=== PATIENT | male | born 1995 | race Caucasian/White ===

== ENCOUNTER 2020-09-08 14:05 | Inpatient (IN) | payer MEDICAID, OTHER ==
[~2020-09-08] VITALS: Ht 175.3 cm; Wt 90.7 kg
[2020-09-08] MEDS ORDERED: ONDANSETRON HCL 4MG/2ML INJ IV STA (14:30)
[2020-09-08] MEDS ORDERED: SODIUM CHLORIDE 0.9% 1,000 ML IV ONE (14:30)
[2020-09-08 15:07] LABS: BASOPHILS % 0.3 % (0.0-2.0); EOSINOPHILS % 0.1 % (0.0-5.0); HEMATOCRIT. 46.8 % (42.0-52.0); HEMOGLOBIN. 15.7 g/dL (14.0-18.0); LYMPHOCYTES % 8.8 % (20.0-50.0); MEAN CORPUSCULAR HEMOGLOBIN 29.3 pg (28.0-32.0); MEAN CORPUSCULAR VOLUME 87.2 fL (80.0-94.0); MEAN PLATELET VOLUME 7.9 fl (7.4-10.4); MONOCYTES % 7.7 % (2.0-8.0); NEUTROPHILS % 83.1 % (40.0-76.0); PLATELET 243 x1000/uL (130-400); RED BLOOD CELL COUNT 5.37 mill/uL (4.7-6.1); RED CELL DISTRIBUTION WIDTH 13.3 % (11.6-14.6)
[2020-09-08 15:08] LABS: CLARITY URINE CLEAR (CLEAR); COLOR URINE ORANGE (YELLOW); KETONES URINE 2+ (NEGATIVE); LEUKOCYTE ESTERASE URINE NEGATIVE (NEGATIVE); NITRITE URINE NEGATIVE (NEGATIVE); OCCULT BLOOD URINE TRACE (NEGATIVE); PROTEIN URINE TRACE (NEGATIVE); SPECIFIC GRAVITY URINE 1.036 (1.005-1.030)
[2020-09-08 15:18] LABS: INR 1.1; PROTHROMBIN TIME 11.9 sec (9.6-11.0)
[2020-09-08 15:20] LABS: CHLORIDE 103 mEq/L (98-107)
[2020-09-08 15:25] LABS: ETHANOL BLOOD < 10 mg/dL
[2020-09-08] MEDS ORDERED: SODIUM CHLORIDE 0.9% 1000ML BAG (SEPSIS BOLUS) IV ONE (15:30)
[2020-09-08] MEDS ORDERED: POTASSIUM CHLORIDE 20MEQ TABLET SR PO ONE (15:30)
[2020-09-08] MEDS ORDERED: PIPERACILLIN/TAZ 3.375G PREMIX 50 ML IV ONE (15:30)
[2020-09-08] MEDS ORDERED: MORPHINE SULFATE 4 MG/ML CPJ (NOT FOR IM USE) IV ONE ×2 (15:30→19:00)
[2020-09-08 15:48] LABS: *AMPHETAMINES SCREEN URINE NEGATIVE (NEGATIVE); *BARBITURATES SCREEN URINE NEGATIVE (NEGATIVE); *BENZODIAZEPINES SCREEN URINE NEGATIVE (NEGATIVE); *COCAINE SCREEN URINE NEGATIVE (NEGATIVE); CANNABINOID URINE SCREEN PRESUMTIVE POSITIVE (NEGATIVE); METHADONE URINE SCREEN NEGATIVE (NEGATIVE); OPIATES URINE SCREEN NEGATIVE (NEGATIVE); PHENCYCLIDINE URINE SCREEN NEGATIVE (NEGATIVE)
[2020-09-08] MEDS ORDERED: ONDANSETRON HCL 4MG/2ML INJ IV ONE (19:00)
[2020-09-08] MEDS ORDERED: GUAIFENESIN 200MG/10ML SUGAR FREE UDC PO PRN (21:15)
[2020-09-08] MEDS ORDERED: HYDROCODONE/APAP 7.5/325MG 1 TAB TABLET PO PRN (21:15)
[2020-09-08] MEDS ORDERED: LORAZEPAM 0.5MG TABLET PO PRN (21:15)
[2020-09-08] MEDS ORDERED: CLONIDINE 0.1MG TABLET PO PRN (21:15)
[2020-09-08] MEDS ORDERED: MAGNESIUM/ALUMINUM HYDROXIDE/SIMETHICONE 30ML UDC PO PRN (21:15)
[2020-09-08] MEDS ORDERED: ACETAMINOPHEN 650MG SUPP PR PRN (21:15)
[2020-09-08] MEDS ORDERED: NA PHOS,M-B/NA PHOS,DI-BA ENEMA 118ML PR PRN (21:15)
[2020-09-08] MEDS ORDERED: ENOXAPARIN 40MG/0.4ML SYR SUBCUT SCH (21:30)
[2020-09-08 21:42] VITALS: BP 127/83
[2020-09-08] MEDS ORDERED: CEFTRIAXONE 1 G PREMIX 50 ML IV SCH (22:00)
[2020-09-08] MEDS ORDERED: METRONIDAZOLE 500 MG PREMIX 100 ML IV SCH (22:00)
[2020-09-09] VITALS: BP 126/76
[2020-09-09] MEDS: MORPHINE SULFATE 2 MG/ML CPJ (NOT FOR IM USE) IV PRN ×3 (02:09→20:22)
[2020-09-09 04:00] VITALS: BP 122/70
[2020-09-09] MEDS: CEFTRIAXONE 1,000 MG in DEXTROSE 5% WATER 50 ML IV SCH (05:23)
[2020-09-09] MEDS: DEXT 5%/0.45% NACL 1000ML 1,000 ML IV SCH ×3 (05:23→23:19)
[2020-09-09 07:35] LABS: BASOPHILS % 0.3 % (0.0-2.0); EOSINOPHILS % 0.2 % (0.0-5.0); HEMOGLOBIN. 12.9 g/dL (14.0-18.0); LYMPHOCYTES % 11.9 % (20.0-50.0); MEAN CORPUSCULAR HEMOGLOBIN 29.8 pg (28.0-32.0); MEAN CORPUSCULAR VOLUME 87.9 fL (80.0-94.0); MONOCYTES % 9.9 % (2.0-8.0); NEUTROPHILS % 77.7 % (40.0-76.0); PLATELET 210 x1000/uL (130-400); RED BLOOD CELL COUNT 4.32 mill/uL (4.7-6.1); RED CELL DISTRIBUTION WIDTH 13.3 % (11.6-14.6)
[2020-09-09 08:00] VITALS: BP 128/71
[2020-09-09 08:07] LABS: CHLORIDE 107 mEq/L (98-107)
[2020-09-09 08:14] LABS: LDL CHOLESTEROL 72 mg/dL (5-100)
[2020-09-09 08:15] LABS: HDL CHOLESTEROL 40 mg/dL (40-59)
[2020-09-09] MEDS: METRONIDAZOLE 500 MG PREMIX 100 ML IV SCH ×3 (08:32→21:07)
[2020-09-09] MEDS: ENOXAPARIN 40MG/0.4ML SYR SUBCUT SCH (08:33)
[2020-09-09 12:00] VITALS: BP 116/72
[2020-09-09 16:00] VITALS: BP 119/74
[2020-09-09 20:00] VITALS: BP 131/90
[2020-09-10] VITALS: BP 116/74
[2020-09-10] MEDS: MORPHINE SULFATE 2 MG/ML CPJ (NOT FOR IM USE) IV PRN (02:28)
[2020-09-10] MEDS: CEFTRIAXONE 1,000 MG in DEXTROSE 5% WATER 50 ML IV SCH (02:28)
[2020-09-10 04:00] VITALS: BP 124/66
[2020-09-10] MEDS: METRONIDAZOLE 500 MG PREMIX 100 ML IV SCH ×2 (05:41→13:07)
[2020-09-10 08:00] VITALS: BP 118/76
[2020-09-10] MEDS: ENOXAPARIN 40MG/0.4ML SYR SUBCUT SCH (08:46)
[2020-09-10] MEDS ORDERED: METR500T MT (11:43)
[2020-09-10 12:00] VITALS: BP 124/85
[2020-09-10] MEDS: DEXT 5%/0.45% NACL 1000ML 1,000 ML IV SCH (13:05)
[2020-09-10 15:00] VITALS: BP 121/78
[2020-09-10 16:14] VITALS: BP 121/78
== END 2020-09-10 16:00 | disposition home or self-care (01) | DRG 244 ==
LOC: ER 14:05 → 6EST 17:23 → EDBEDREQTM 17:27 → EDBEDREQ 17:27 → ENRESERV 19:50 → ER 20:16
PROVIDERS: ADMIT Family Medicine; ATTEND Family Medicine
DX: K57.32 Diverticulitis of large intestine without perforation or abscess without bleeding (principal); E87.6 Hypokalemia; E86.0 Dehydration; K76.0 Fatty (change of) liver, not elsewhere classified
CPT/HCPCS: 36415; 71045; 74176; 80053; 80061; 80305; 80320; 81003; 83605; 84484; 85025; 93005; 99285; J0696; J1650; J2270; J2405; J2543; J3490; J7030; J7060; G0480

== ENCOUNTER 2020-10-10 16:58 | Emergency (ER) | payer MEDICAID ==
[~2020-10-10] VITALS: Ht 172.7 cm; Wt 70.0 kg
[~2020-10-10 16:58] MED LIST: METR500T MT
[2020-10-10] MEDS ORDERED: PANTOPRAZOLE SODIUM 40 MG/VIAL IV ONE (18:30)
[2020-10-10] MEDS ORDERED: ONDANSETRON HCL 4MG/2ML INJ IV ONE (18:30)
[2020-10-10] MEDS ORDERED: SODIUM CHLORIDE 0.9% 1,000 ML IV ONE (18:30)
[2020-10-10 18:34] LABS: HEMATOCRIT. 44.1 % (42.0-52.0); HEMOGLOBIN. 14.7 g/dL (14.0-18.0); MEAN CORPUSCULAR HEMOGLOBIN 28.9 pg (28.0-32.0); MEAN CORPUSCULAR VOLUME 86.5 fL (80.0-94.0); MEAN PLATELET VOLUME 7.6 fl (7.4-10.4); PLATELET 273 x1000/uL (130-400); RED BLOOD CELL COUNT 5.09 mill/uL (4.7-6.1); RED CELL DISTRIBUTION WIDTH 13.9 % (11.6-14.6)
[2020-10-10 18:39] LABS: CHLORIDE 108 mEq/L (98-107)
[2020-10-10 18:41] LABS: INR 1.1; PROTHROMBIN TIME 11.7 sec (9.6-11.0)
[2020-10-10 19:02] LABS: PLATELET ESTIMATE NORMAL
[2020-10-10] MEDS ORDERED: IOHEXOL-300 100 ML BOTTLE ONE (21:44)
[2020-10-10] MEDS ORDERED: DOCUSATE SODIUM 100MG CAPSULE PO ONE (22:15)
[2020-10-10] MEDS ORDERED: LEVOFLOXACIN 250MG TABLET PO ONE (22:15)
[2020-10-10] MEDS ORDERED: HYDROCODONE/ACETAMINOPHEN 5/325MG TABLET PO ONE (22:15)
[2020-10-10] MEDS ORDERED: METRONIDAZOLE 500 MG PREMIX 100 ML IV ONE (22:15)
[2020-10-11] MEDS ORDERED: METR375C2 MT (00:04)
[2020-10-11] MEDS ORDERED: HYDR-4346 MT (00:04)
[2020-10-11] MEDS ORDERED: LEVO500T89 MT (00:04)
[2020-10-11] MEDS ORDERED: DOCU-138 MT (00:04)
[2020-10-11] MEDS ORDERED: ONDA4TAB5 MT (00:04)
[2020-10-11 00:24] VITALS: BP 123/64
== END 2020-10-11 00:37 | disposition home or self-care (01) ==
LOC: ER 16:58
DX: K57.92 Diverticulitis of intestine, part unspecified, without perforation or abscess without bleeding (principal)
CPT/HCPCS: 36415; 74177; 80053; 83690; 85025; 85610; 96365; 96375; 99285; C9113; J2405; J3490; J7030; Q9967; Z7610

== ENCOUNTER 2020-12-11 03:39 | Emergency (ER) | payer SELFPAY ==
[~2020-12-11] VITALS: Ht 175.3 cm; Wt 87.0 kg
[~2020-12-11 03:39] MED LIST changes: +DOCU-138 MT; +HYDR-4346 MT; +LEVO500T89 MT; +METR375C2 MT; +ONDA4TAB5 MT
[2020-12-11 04:27] VITALS: BP 117/72
== END 2020-12-11 04:27 | disposition home or self-care (01) ==
LOC: ER 03:39
DX: T16.1XXA Foreign body in right ear, initial encounter (principal); X58.XXXA Exposure to other specified factors, initial encounter; Y93.89 Activity, other specified; Y92.89 Other specified places as the place of occurrence of the external cause; Y99.8 Other external cause status
CPT/HCPCS: 69200; 99284

== ENCOUNTER 2021-08-05 09:31 | Inpatient (IN) | payer SELFPAY ==
[~2021-08-05] VITALS: Ht 175.3 cm; Wt 86.2 kg
[2021-08-05] MEDS ORDERED: SODIUM CHLORIDE 0.9% 1,000 ML IV ONE (10:45)
[2021-08-05] MEDS ORDERED: MORPHINE SULFATE 4 MG/ML CPJ (NOT FOR IM USE) IV STA (10:45)
[2021-08-05] MEDS ORDERED: ONDANSETRON HCL 4MG/2ML INJ IV STA (10:45)
[2021-08-05] MEDS ORDERED: AMPICILLIN SOD/SULBACTAM NA 3 G in SODIUM CHLORIDE 0.9% 100 ML IV STA (11:15)
[2021-08-05 11:26] LABS: HEMATOCRIT. 43.7 % (42.0-52.0); HEMOGLOBIN. 14.6 g/dL (14.0-18.0); MEAN CORPUSCULAR HEMOGLOBIN 29.3 pg (28.0-32.0); MEAN CORPUSCULAR VOLUME 87.3 fL (80.0-94.0); MEAN PLATELET VOLUME 7.4 fl (7.4-10.4); PLATELET 462 x1000/uL (130-400); RED BLOOD CELL COUNT 5.01 mill/uL (4.7-6.1)
[2021-08-05 11:32] LABS: CHLORIDE 102 mEq/L (98-107)
[2021-08-05 12:23] LABS: NUCLEATED RED BLOOD CELLS 1 /100 WBC; PLATELET ESTIMATE INCREASED
[2021-08-05] MEDS ORDERED: KETOROLAC 15MG/ML VIAL IV ONE (12:30)
[2021-08-05] MEDS ORDERED: POTASSIUM CHLORIDE 20MEQ TABLET SR PO ONE (12:45)
[2021-08-05] MEDS ORDERED: MORPHINE SULFATE 4 MG/ML CPJ (NOT FOR IM USE) IV ONE (13:30)
[2021-08-05] MEDS ORDERED: ACETAMINOPHEN 325MG TABLET PO PRN (15:30)
[2021-08-05] MEDS ORDERED: GUAIFENESIN 200MG/10ML SUGAR FREE UDC PO PRN (15:30)
[2021-08-05] MEDS ORDERED: MAGNESIUM/ALUMINUM HYDROXIDE/SIMETHICONE 30ML UDC PO PRN (15:30)
[2021-08-05] MEDS: DEXT 5%/0.45% NACL 1000ML 1,000 ML IV SCH (15:30)
[2021-08-05] MEDS ORDERED: CLONIDINE 0.1MG TABLET PO PRN (15:30)
[2021-08-05] MEDS ORDERED: DOCUSATE SODIUM 100MG CAPSULE PO PRN (15:30)
[2021-08-05] MEDS ORDERED: DIPHENHYDRAMINE 50MG/ML VIAL IV PRN (15:30)
[2021-08-05] MEDS ORDERED: IPRATROPIUM/ALBUTEROL 0.5-3(2.5)MG/3ML NEB HHN PRN (15:30)
[2021-08-05] MEDS ORDERED: HYDRALAZINE 20MG/ML VIAL IV PRN (15:30)
[2021-08-05] MEDS ORDERED: LORAZEPAM 2MG/ML CPJ IV PRN (15:30)
[2021-08-05] MEDS ORDERED: PIPERACILLIN/TAZ 3.375G PREMIX 50 ML IV SCH (16:00)
[2021-08-05] MEDS: ENOXAPARIN 40MG/0.4ML SYR SUBCUT SCH (16:00)
[2021-08-05] MEDS: MORPHINE SULFATE 2 MG/ML CPJ (NOT FOR IM USE) IV PRN ×2 (17:32→21:48)
[2021-08-05] MEDS: SODIUM CHLORIDE 0.9% INJ 3ML FLUSH IVF SCH (21:47)
[2021-08-05] MEDS ORDERED: KETOROLAC 15MG/ML VIAL IV PRN (22:00)
[2021-08-05] MEDS: PIPERACILLIN/TAZOBACTAM 3.375G in DEXT 5% WATER 50ML IV SCH (22:10)
[2021-08-06] MEDS: DEXT 5%/0.45% NACL 1000ML 1,000 ML IV SCH ×3 (02:12→20:42)
[2021-08-06 02:34] LABS: CLARITY URINE CLEAR (CLEAR); COLOR URINE YELLOW (YELLOW); KETONES URINE NEGATIVE (NEGATIVE); LEUKOCYTE ESTERASE URINE NEGATIVE (NEGATIVE); NITRITE URINE NEGATIVE (NEGATIVE); OCCULT BLOOD URINE NEGATIVE (NEGATIVE); PH URINE 6.5 (4.5-8.0); PROTEIN URINE NEGATIVE (NEGATIVE); SPECIFIC GRAVITY URINE 1.018 (1.005-1.030)
[2021-08-06 02:44] LABS: *AMPHETAMINES SCREEN URINE NEGATIVE (NEGATIVE); *BARBITURATES SCREEN URINE NEGATIVE (NEGATIVE); *BENZODIAZEPINES SCREEN URINE NEGATIVE (NEGATIVE); *COCAINE SCREEN URINE NEGATIVE (NEGATIVE); METHADONE URINE SCREEN NEGATIVE (NEGATIVE); OPIATES URINE SCREEN PRESUMTIVE POSITIVE (NEGATIVE)
[2021-08-06 02:45] LABS: CANNABINOID URINE SCREEN PRESUMTIVE POSITIVE (NEGATIVE); PHENCYCLIDINE URINE SCREEN NEGATIVE (NEGATIVE)
[2021-08-06 05:07] LABS: BASOPHILS % 0.2 % (0.0-2.0); EOSINOPHILS % 0.3 % (0.0-5.0); HEMATOCRIT. 34.7 % (42.0-52.0); HEMOGLOBIN. 11.9 g/dL (14.0-18.0); LYMPHOCYTES % 12.8 % (20.0-50.0); MEAN CORPUSCULAR VOLUME 87.2 fL (80.0-94.0); MEAN PLATELET VOLUME 7.4 fl (7.4-10.4); MONOCYTES % 8.7 % (2.0-8.0); PLATELET 306 x1000/uL (130-400); RED BLOOD CELL COUNT 3.98 mill/uL (4.7-6.1)
[2021-08-06] MEDS: ONDANSETRON HCL 4MG/2ML INJ IV PRN ×2 (05:08→11:41)
[2021-08-06 05:19] LABS: CHLORIDE 106 mEq/L (98-107)
[2021-08-06] MEDS: SODIUM CHLORIDE 0.9% INJ 3ML FLUSH IVF SCH ×3 (06:04→22:00)
[2021-08-06] MEDS: PIPERACILLIN/TAZOBACTAM 3.375G in DEXT 5% WATER 50ML IV SCH ×3 (06:20→23:00)
[2021-08-06] MEDS: MORPHINE SULFATE 2 MG/ML CPJ (NOT FOR IM USE) IV PRN ×4 (07:36→20:43)
[2021-08-06] MEDS ORDERED: POTASSIUM CHLORIDE 20MEQ TABLET SR PO NR (08:00)
[2021-08-06 08:50] VITALS: BP 135/73
[2021-08-06] MEDS: HYDROCODONE/ACETAMINOPHEN 5/325MG TABLET PO PRN ×3 (09:58→23:03)
[2021-08-06] MEDS ORDERED: NALOXONE HCL 0.4MG/ML VIAL IV PRN (13:15)
[2021-08-06 16:00] VITALS: BP 108/63
[2021-08-06] MEDS: ENOXAPARIN 40MG/0.4ML SYR SUBCUT SCH (16:57)
[2021-08-06] MEDS ORDERED: *PATIENT'S OWN MEDICATION STORAGE XX SCH (19:45)
[2021-08-06 20:00] VITALS: BP 109/61
[2021-08-07] VITALS: BP 110/61
[2021-08-07 04:00] VITALS: BP 120/73
[2021-08-07] MEDS: MORPHINE SULFATE 2 MG/ML CPJ (NOT FOR IM USE) IV PRN ×4 (05:14→23:07)
[2021-08-07] MEDS: PIPERACILLIN/TAZOBACTAM 3.375G in DEXT 5% WATER 50ML IV SCH ×3 (05:17→23:07)
[2021-08-07] MEDS: SODIUM CHLORIDE 0.9% INJ 3ML FLUSH IVF SCH ×3 (05:17→22:00)
[2021-08-07] MEDS: DEXT 5%/0.45% NACL 1000ML 1,000 ML IV SCH ×2 (07:32→17:30)
[2021-08-07 08:00] VITALS: BP 108/64
[2021-08-07 12:00] VITALS: BP 121/68
[2021-08-07] MEDS: HYDROCODONE/ACETAMINOPHEN 5/325MG TABLET PO PRN ×2 (13:03→19:45)
[2021-08-07 13:37] LABS: HEMATOCRIT 36.1 % (42.0-52.0); HEMOGLOBIN 12.4 g/dL (14.0-18.0); MEAN CORPUSCULAR HEMOGLOBIN 29.9 pg (28.0-32.0); MEAN CORPUSCULAR VOLUME 87.1 fL (80.0-94.0); PLATELET 337 x1000/uL (130-400); RED BLOOD CELL COUNT 4.14 mill/uL (4.7-6.1); RED CELL DISTRIBUTION WIDTH 12.7 % (11.6-14.6)
[2021-08-07 13:58] LABS: CHLORIDE 105 mEq/L (98-107)
[2021-08-07] MEDS: ENOXAPARIN 40MG/0.4ML SYR SUBCUT SCH (16:35)
[2021-08-07 20:00] VITALS: BP 119/70
[2021-08-08] VITALS: BP 117/45
[2021-08-08 04:00] VITALS: BP 126/55
[2021-08-08] MEDS: DEXT 5%/0.45% NACL 1000ML 1,000 ML IV SCH ×3 (04:09→23:30)
[2021-08-08] MEDS: PIPERACILLIN/TAZOBACTAM 3.375G in DEXT 5% WATER 50ML IV SCH ×3 (05:32→22:00)
[2021-08-08] MEDS: HYDROCODONE/ACETAMINOPHEN 5/325MG TABLET PO PRN (06:41)
[2021-08-08] MEDS: SODIUM CHLORIDE 0.9% INJ 3ML FLUSH IVF SCH ×3 (06:41→22:00)
[2021-08-08 08:00] VITALS: BP 122/84
[2021-08-08 08:01] LABS: CHLORIDE 105 mEq/L (98-107)
[2021-08-08 08:06] LABS: BASOPHILS % 0.2 % (0.0-2.0); EOSINOPHILS % 0.3 % (0.0-5.0); HEMOGLOBIN. 13.4 g/dL (14.0-18.0); LYMPHOCYTES % 10.1 % (20.0-50.0); MEAN CORPUSCULAR HEMOGLOBIN 30.2 pg (28.0-32.0); MEAN CORPUSCULAR VOLUME 85.5 fL (80.0-94.0); MEAN PLATELET VOLUME 7.3 fl (7.4-10.4); MONOCYTES % 7.5 % (2.0-8.0); NEUTROPHILS % 81.9 % (40.0-76.0); PLATELET 370 x1000/uL (130-400); RED BLOOD CELL COUNT 4.45 mill/uL (4.7-6.1); RED CELL DISTRIBUTION WIDTH 12.7 % (11.6-14.6)
[2021-08-08 12:00] VITALS: BP 119/71
[2021-08-08] MEDS: ENOXAPARIN 40MG/0.4ML SYR SUBCUT SCH (15:37)
[2021-08-08 16:00] VITALS: BP 124/78
[2021-08-08 20:00] VITALS: BP 115/69
[2021-08-08] MEDS ORDERED: HYDRALAZINE 10 MG in SODIUM CHLORIDE 0.9% 49.5 ML IV PRN (22:00)
[2021-08-09] VITALS: BP 114/63
[2021-08-09 04:00] VITALS: BP 109/64
[2021-08-09] MEDS: PIPERACILLIN/TAZOBACTAM 3.375G in DEXT 5% WATER 50ML IV SCH (05:50)
[2021-08-09] MEDS: SODIUM CHLORIDE 0.9% INJ 3ML FLUSH IVF SCH (05:51)
[2021-08-09 08:00] VITALS: BP 118/73
[2021-08-09 08:23] LABS: BASOPHILS % 0.3 % (0.0-2.0); EOSINOPHILS % 0.8 % (0.0-5.0); HEMATOCRIT. 39.5 % (42.0-52.0); HEMOGLOBIN. 13.5 g/dL (14.0-18.0); LYMPHOCYTES % 16.7 % (20.0-50.0); MEAN CORPUSCULAR HEMOGLOBIN 29.8 pg (28.0-32.0); MEAN CORPUSCULAR VOLUME 86.9 fL (80.0-94.0); MEAN PLATELET VOLUME 7.2 fl (7.4-10.4); MONOCYTES % 7.5 % (2.0-8.0); NEUTROPHILS % 74.7 % (40.0-76.0); PLATELET 372 x1000/uL (130-400); RED BLOOD CELL COUNT 4.55 mill/uL (4.7-6.1)
[2021-08-09 08:55] LABS: CHLORIDE 104 mEq/L (98-107)
== END 2021-08-09 12:08 | disposition home or self-care (01) | DRG 244 ==
LOC: ER 09:31 → MICUSO 15:21 → 6EST 08-06 08:44
PROVIDERS: ADMIT Internal Medicine; ATTEND Internal Medicine
DX: K57.32 Diverticulitis of large intestine without perforation or abscess without bleeding (principal); R65.10 Systemic inflammatory response syndrome (SIRS) of non-infectious origin without acute organ dysfunction; D64.9 Anemia, unspecified; E86.0 Dehydration; E87.6 Hypokalemia; Z20.822 Contact with and (suspected) exposure to COVID-19; F17.200 Nicotine dependence, unspecified, uncomplicated; Z87.11 Personal history of peptic ulcer disease; Z79.2 Long term (current) use of antibiotics; Z79.899 Other long term (current) drug therapy
CPT/HCPCS: 36415; 74176; 80048; 80053; 80305; 81003; 85025; 85027; 87426; 93005; 99285; J0295; J1650; J1885; J2270; J2405; J2543; J7030; J7050; J7060

== ENCOUNTER 2022-01-19 06:14 | Inpatient (IN) | payer MEDICAID, OTHER ==
[~2022-01-19] VITALS: Ht 172.7 cm; Wt 83.5 kg
[~2022-01-19 06:14] MED LIST changes: -LEVO500T89 MT; +LEVO500T90 MT; -METR375C2 MT
[2022-01-19] MEDS ORDERED: FAMOTIDINE 20MG/2ML VIAL IV STA (07:08)
[2022-01-19] MEDS ORDERED: ONDANSETRON HCL 4MG/2ML INJ IV STA (07:08)
[2022-01-19] MEDS ORDERED: MORPHINE SULFATE 4 MG/ML CPJ (NOT FOR IM USE) IV STA (07:08)
[2022-01-19] MEDS ORDERED: SODIUM CHLORIDE 0.9% 1,000 ML IV ONE (07:15)
[2022-01-19 09:05] LABS: HEMATOCRIT. 47.9 % (42.0-52.0); HEMOGLOBIN. 16.2 g/dL (14.0-18.0); MEAN CORPUSCULAR HEMOGLOBIN 30.1 pg (28.0-32.0); MEAN PLATELET VOLUME 7.8 fl (7.4-10.4); PLATELET 300 x1000/uL (130-400); RED BLOOD CELL COUNT 5.38 mill/uL (4.7-6.1); RED CELL DISTRIBUTION WIDTH 13.6 % (11.6-14.6)
[2022-01-19 09:14] LABS: CHLORIDE 102 mEq/L (98-107); PROTHROMBIN TIME 11.1 sec (9.6-11.0)
[2022-01-19] MEDS ORDERED: FAMOTIDINE 20MG/2ML VIAL IV SCH (09:30)
[2022-01-19 09:44] LABS: PLATELET ESTIMATE NORMAL
[2022-01-19] MEDS ORDERED: MORPHINE SULFATE 4 MG/ML CPJ (NOT FOR IM USE) IV ONE (10:00)
[2022-01-19] MEDS ORDERED: LEVOFLOXACIN 500MG PREMIX 100 ML IV ONE (10:00)
[2022-01-19] MEDS ORDERED: METRONIDAZOLE 500 MG PREMIX 100 ML IV ONE (10:00)
[2022-01-19] MEDS ORDERED: ONDANSETRON HCL 4MG/2ML INJ IV ONE (10:00)
[2022-01-19] MEDS ORDERED: ACETAMINOPHEN 325MG TABLET PO PRN (12:00)
[2022-01-19] MEDS ORDERED: ONDANSETRON HCL 4MG/2ML INJ IV PRN (12:00)
[2022-01-19] MEDS ORDERED: PIPERACILLIN/TAZ 3.375G PREMIX 50 ML IV NR (12:15)
[2022-01-19 16:00] VITALS: BP 101/68
[2022-01-19 16:04] VITALS: BP 100/58
[2022-01-19] MEDS: HYDROCODONE/ACETAMINOPHEN 5/325MG TABLET PO PRN (18:08)
[2022-01-19] MEDS ORDERED: NALOXONE HCL 0.4MG/ML VIAL IV PRN (19:45)
[2022-01-19 20:00] VITALS: BP 115/64
[2022-01-19 20:58] LABS: CLARITY URINE CLEAR (CLEAR); COLOR URINE YELLOW (YELLOW); KETONES URINE 2+ (NEGATIVE); LEUKOCYTE ESTERASE URINE NEGATIVE (NEGATIVE); NITRITE URINE NEGATIVE (NEGATIVE); OCCULT BLOOD URINE NEGATIVE (NEGATIVE); PH URINE 6.5 (4.5-8.0); PROTEIN URINE TRACE (NEGATIVE); SPECIFIC GRAVITY URINE 1.028 (1.005-1.030)
[2022-01-19] MEDS: PIPERACILLIN/TAZOBACTAM 3.375 G in DEXTROSE 5% WATER 50 ML IV SCH (21:42)
[2022-01-19] MEDS ORDERED: PIPERACILLIN/TAZOBACTAM 3.375 G in DEXTROSE 5% WATER 50 ML IV SCH (22:00)
[2022-01-20] VITALS: BP 98/54
[2022-01-20 04:00] VITALS: BP 101/56
[2022-01-20] MEDS: PIPERACILLIN/TAZOBACTAM 3.375 G in DEXTROSE 5% WATER 50 ML IV SCH ×3 (05:54→21:24)
[2022-01-20] MEDS: HYDROCODONE/ACETAMINOPHEN 5/325MG TABLET PO PRN (05:54)
[2022-01-20 07:23] LABS: BASOPHILS % 0.3 % (0.0-2.0); EOSINOPHILS % 0.5 % (0.0-5.0); HEMATOCRIT. 43.9 % (42.0-52.0); HEMOGLOBIN. 14.9 g/dL (14.0-18.0); LYMPHOCYTES % 13.1 % (20.0-50.0); MEAN CORPUSCULAR HEMOGLOBIN 30.2 pg (28.0-32.0); MEAN CORPUSCULAR VOLUME 89.2 fL (80.0-94.0); MEAN PLATELET VOLUME 7.7 fl (7.4-10.4); MONOCYTES % 7.5 % (2.0-8.0); NEUTROPHILS % 78.6 % (40.0-76.0); PLATELET 236 x1000/uL (130-400); RED BLOOD CELL COUNT 4.93 mill/uL (4.7-6.1); RED CELL DISTRIBUTION WIDTH 13.7 % (11.6-14.6)
[2022-01-20 07:47] LABS: CHLORIDE 107 mEq/L (98-107)
[2022-01-20 08:00] VITALS: BP 102/56
[2022-01-20] MEDS: FAMOTIDINE 20MG/2ML VIAL IV SCH (08:59)
[2022-01-20 12:00] VITALS: BP_SYST 102; BP_SYST 110; BP_DIAS 60; BP_DIAS 63
[2022-01-20 16:21] VITALS: BP 110/63
[2022-01-20 20:00] VITALS: BP 114/64
[2022-01-21] VITALS: BP 108/61
[2022-01-21 04:00] VITALS: BP 100/59
[2022-01-21] MEDS: PIPERACILLIN/TAZOBACTAM 3.375 G in DEXTROSE 5% WATER 50 ML IV SCH ×2 (05:46→15:04)
[2022-01-21 06:44] LABS: BASOPHILS % 0.4 % (0.0-2.0); EOSINOPHILS % 1.2 % (0.0-5.0); HEMATOCRIT. 44.5 % (42.0-52.0); HEMOGLOBIN. 15.1 g/dL (14.0-18.0); LYMPHOCYTES % 21.7 % (20.0-50.0); MEAN CORPUSCULAR HEMOGLOBIN 30.2 pg (28.0-32.0); MEAN CORPUSCULAR VOLUME 88.9 fL (80.0-94.0); MEAN PLATELET VOLUME 7.8 fl (7.4-10.4); MONOCYTES % 9.2 % (2.0-8.0); NEUTROPHILS % 67.5 % (40.0-76.0); PLATELET 262 x1000/uL (130-400); RED BLOOD CELL COUNT 5.01 mill/uL (4.7-6.1); RED CELL DISTRIBUTION WIDTH 13.6 % (11.6-14.6)
[2022-01-21 06:47] LABS: CHLORIDE 103 mEq/L (98-107)
[2022-01-21 08:00] VITALS: BP 107/57
[2022-01-21] MEDS: FAMOTIDINE 20MG/2ML VIAL IV SCH (09:33)
[2022-01-21] MEDS ORDERED: POTASSIUM CHLORIDE 20MEQ/PACKET PO NR (10:00)
[2022-01-21 12:00] VITALS: BP 117/70
[2022-01-21 16:00] VITALS: BP 102/64
== END 2022-01-21 20:55 | disposition left against medical advice (07) | DRG 244 ==
LOC: ER 07:59 → 4WST 11:04 → ENRESERV 14:02 → 6EST 18:46
PROVIDERS: ADMIT Internal Medicine; ATTEND Internal Medicine
DX: K57.32 Diverticulitis of large intestine without perforation or abscess without bleeding (principal); K76.0 Fatty (change of) liver, not elsewhere classified; D72.829 Elevated white blood cell count, unspecified; R73.9 Hyperglycemia, unspecified; F12.90 Cannabis use, unspecified, uncomplicated; Z53.29 Procedure and treatment not carried out because of patient's decision for other reasons
CPT/HCPCS: 36415; 74176; 76700; 80048; 80053; 80076; 81003; 82248; 85025; 99285; J1956; J2270; J2405; J2543; J3490; J7030; J7060

== ENCOUNTER 2022-07-09 17:48 | Inpatient (IN) | payer MEDICAID, OTHER ==
[~2022-07-09] VITALS: Ht 165.1 cm; Wt 150.0 kg
[~2022-07-09 17:48] MED LIST changes: +LEVO-65 MT; -LEVO500T90 MT
[2022-07-09] MEDS ORDERED: MORPHINE SULFATE 4 MG/ML CPJ (NOT FOR IM USE) IV STA (18:08)
[2022-07-09] MEDS ORDERED: ONDANSETRON HCL 4MG/2ML INJ IV STA (18:08)
[2022-07-09] MEDS ORDERED: CEFTRIAXONE 1 G PREMIX 50 ML IV ONE (18:15)
[2022-07-09] MEDS ORDERED: SODIUM CHLORIDE 0.9% 1000ML BAG (SEPSIS BOLUS) IV ONE (18:15)
[2022-07-09] MEDS ORDERED: METRONIDAZOLE 500 MG PREMIX 100 ML IV ONE (18:15)
[2022-07-09 20:10] LABS: BASOPHILS % 0.2 % (0.0-2.0); HEMATOCRIT. 46.1 % (42.0-52.0); HEMOGLOBIN. 15.7 g/dL (14.0-18.0); LYMPHOCYTES % 7.1 % (20.0-50.0); MEAN CORPUSCULAR HEMOGLOBIN 30.7 pg (28.0-32.0); MEAN CORPUSCULAR VOLUME 90.1 fL (80.0-94.0); MEAN PLATELET VOLUME 7.5 fl (7.4-10.4); MONOCYTES % 4.2 % (2.0-8.0); NEUTROPHILS % 88.5 % (40.0-76.0); PLATELET 291 x1000/uL (130-400); RED BLOOD CELL COUNT 5.11 mill/uL (4.7-6.1); RED CELL DISTRIBUTION WIDTH 13.5 % (11.6-14.6)
[2022-07-09 20:15] LABS: CHLORIDE 107 mEq/L (98-107)
[2022-07-09 20:16] LABS: PROTHROMBIN TIME 11.1 sec (9.6-11.0)
[2022-07-09] MEDS ORDERED: IOHEXOL-300 100 ML BOTTLE ONE (21:18)
[2022-07-09] MEDS ORDERED: ONDANSETRON HCL 4MG/2ML INJ IV NR (22:00)
[2022-07-09] MEDS ORDERED: METRONIDAZOLE 500 MG PREMIX 100 ML IV NR (22:00)
[2022-07-09] MEDS ORDERED: CEFTRIAXONE 1 G PREMIX 50 ML IV NR (22:00)
[2022-07-09] MEDS: MORPHINE SULFATE 4 MG/ML CPJ (NOT FOR IM USE) IV NR ×2 (22:43→23:13)
[2022-07-10] MEDS ORDERED: MORPHINE SULFATE 4 MG/ML CPJ (NOT FOR IM USE) IV ONE
[2022-07-10] MEDS ORDERED: ONDANSETRON HCL 4MG/2ML INJ IV ONE
[2022-07-10 00:08] LABS: CLARITY URINE CLEAR (CLEAR); COLOR URINE YELLOW (YELLOW); KETONES URINE NEGATIVE (NEGATIVE); LEUKOCYTE ESTERASE URINE NEGATIVE (NEGATIVE); NITRITE URINE NEGATIVE (NEGATIVE); OCCULT BLOOD URINE NEGATIVE (NEGATIVE); PROTEIN URINE TRACE (NEGATIVE); SPECIFIC GRAVITY URINE 1.086 (1.005-1.030); UROBILINOGEN URINE 0.2 E.U./dL (0.2-1.0)
[2022-07-10] MEDS ORDERED: MORPHINE SULFATE 4 MG/ML CPJ (NOT FOR IM USE) IV NR (00:30)
[2022-07-10] MEDS ORDERED: ONDANSETRON HCL 4MG/2ML INJ IV NR (00:30)
[2022-07-10] MEDS ORDERED: ONDANSETRON HCL 4MG/2ML INJ IV PRN (09:00)
[2022-07-10] MEDS ORDERED: HYDROCODONE/ACETAMINOPHEN 5/325MG TABLET PO PRN (09:00)
[2022-07-10] MEDS ORDERED: NALOXONE HCL 0.4MG/ML VIAL IV PRN (09:15)
[2022-07-10] MEDS ORDERED: PIPERACILLIN/TAZ 3.375G PREMIX 50 ML IV NR (09:30)
[2022-07-10 14:00] VITALS: BP 114/56
[2022-07-10] MEDS ORDERED: PIPERACILLIN/TAZOBACTAM 3.375 G in DEXTROSE 5% WATER 50 ML IV SCH (15:00)
== END 2022-07-10 14:27 | disposition left against medical advice (07) | DRG 244 ==
LOC: ER 17:48 → EDBEDREQTM 18:15 → MICUSO 23:46
PROVIDERS: ADMIT Internal Medicine; ATTEND Internal Medicine
DX: K57.92 Diverticulitis of intestine, part unspecified, without perforation or abscess without bleeding (principal); E66.9 Obesity, unspecified; Z53.29 Procedure and treatment not carried out because of patient's decision for other reasons; Z79.899 Other long term (current) drug therapy
CPT/HCPCS: 36415; 71045; 74177; 80053; 81003; 83605; 84145; 85025; 86850; 86900; 93005; 99291; J0696; J2270; J2405; J2543; J3490; J7030; J7060; Q9967

== ENCOUNTER 2023-08-27 01:13 | Emergency (ER) | payer MEDICAID, OTHER ==
[~2023-08-27] VITALS: Ht 172.7 cm; Wt 83.0 kg
[2023-08-27 01:22] VITALS: O2SAT 100
[2023-08-27] MEDS ORDERED: MORPHINE SULFATE 4 MG/ML CPJ (NOT FOR IM USE) IV STA (01:36)
[2023-08-27] MEDS: ONDANSETRON HCL 4MG/2ML INJ IV STA (01:36)
[2023-08-27 02:26] LABS: BASOPHILS % 0.3 % (0.0-2.0); EOSINOPHILS % 0.2 % (0.0-5.0); HEMATOCRIT. 46.5 % (42.0-52.0); HEMOGLOBIN. 15.8 g/dL (14.0-18.0); LYMPHOCYTES % 10.9 % (20.0-50.0); MEAN CORPUSCULAR HEMOGLOBIN 30.5 pg (28.0-32.0); MEAN CORPUSCULAR VOLUME 89.8 fL (80.0-94.0); MEAN PLATELET VOLUME 7.6 fl (7.4-10.4); MONOCYTES % 6.7 % (2.0-8.0); NEUTROPHILS % 81.9 % (40.0-76.0); PLATELET 304 x1000/uL (130-400); RED BLOOD CELL COUNT 5.18 mill/uL (4.7-6.1); RED CELL DISTRIBUTION WIDTH 13.5 % (11.6-14.6); WHITE BLOOD COUNT 13.1 x1000/uL (4.5-11.0)
[2023-08-27 02:55] LABS: ALANINE AMINOTRANSFERASE 57 IU/L (10-49); ALBUMIN 5.4 g/dL (3.2-4.8); ASPARTATE AMINOTRANSFERASE 43 IU/L (<34); BILIRUBIN TOTAL 1.5 mg/dL (0.1-1.0); CALCIUM 10.4 mg/dL (8.7-10.4); CARBON DIOXIDE 25 mEq/L (21-32); CHLORIDE 103 mEq/L (98-107); CREATININE 0.7 mg/dL (0.6-1.3); ETHANOL BLOOD < 10 mg/dL (<10); GLUCOSE 132 mg/dL (70-105); POTASSIUM 3.8 mEq/L (3.5-5.1); PROTEIN TOTAL 7.9 g/dL (6.0-8.3); SODIUM 139 mEq/L (136-145); UREA NITROGEN BLOOD 13 mg/dL (9-23)
[2023-08-27] MEDS: SODIUM CHLORIDE 0.9% 1,000 ML IV ONE (05:53)
[2023-08-27] MEDS: MORPHINE SULFATE 4 MG/ML CPJ (NOT FOR IM USE) IV NR (05:54)
[2023-08-27] MEDS: ONDANSETRON HCL 4MG/2ML INJ IV NR (05:54)
[2023-08-27] MEDS ORDERED: IOHEXOL-300 100 ML BOTTLE ONE (06:25)
[2023-08-27] MEDS ORDERED: KETOROLAC 30MG/ML VIAL IV PRN (13:30)
[2023-08-27 15:07] VITALS: BP 138/93; PULSE 71; RESP 18; TEMP 98.6
[2023-08-28] MEDS ORDERED: IOHEXOL-300 100 ML BOTTLE ONE (09:26)
== END 2023-08-27 15:59 | disposition left against medical advice (07) ==
LOC: ER 01:13
DX: R10.9 Unspecified abdominal pain (principal); R11.2 Nausea with vomiting, unspecified; F12.10 Cannabis abuse, uncomplicated
CPT/HCPCS: 80053; 80320; 83605; 83690; 85025; 36415; 74177; 96361; 96374; 96375; 99285; Q9967; J2405; J2270; J7030; Z7610 ×3; G0480

== ENCOUNTER 2025-07-02 15:26 | Emergency (ER) | payer MEDICAID ==
[~2025-07-02] VITALS: Ht 175.3 cm; Wt 91.0 kg
[2025-07-02 15:29] VITALS: O2SAT 98
[2025-07-02] MEDS: SODIUM CHLORIDE 0.9% 1,000 ML IV ONE (16:13)
[2025-07-02] MEDS: HALOPERIDOL LACTATE 5MG/ML VIAL IM ONE (16:14)
[2025-07-02] MEDS: MORPHINE SULFATE 4 MG/ML INJ (FOR IV/IM USE) IV ONE (16:14)
[2025-07-02 16:59] LABS: HEMATOCRIT. 46.7 % (42.0-52.0); HEMOGLOBIN. 15.7 g/dL (14.0-18.0); MEAN PLATELET VOLUME 8.0 fl (7.4-10.4); PLATELET 306 x1000/uL (130-400); RED BLOOD CELL COUNT 5.24 mill/uL (4.7-6.1); RED CELL DISTRIBUTION WIDTH 13.0 % (11.6-14.6)
[2025-07-02 17:19] LABS: CREATININE 1.0 mg/dL (0.6-1.3); UREA NITROGEN BLOOD 18 mg/dL (9-23)
[2025-07-02 17:20] LABS: PROTEIN TOTAL 8.0 g/dL (6.0-8.3)
[2025-07-02 17:21] LABS: ASPARTATE AMINOTRANSFERASE 51 IU/L (<34); BILIRUBIN DIRECT 0.3 mg/dL (<=3.0); BILIRUBIN TOTAL 1.2 mg/dL (0.1-1.0)
[2025-07-02] MEDS ORDERED: FAMO-135 MT (19:19)
[2025-07-02] MEDS ORDERED: ONDA4TAB50 MT (19:20)
[2025-07-02 19:37] VITALS: BP 154/80; PULSE 75; RESP 18; TEMP 37.1; O2SAT 99
[2025-07-02 21:18] LABS: ATYPICAL LYMPHOCYTES 2; BAND% 2.0 % (1.0-6.0); LYMPHOCYTES % MANUAL 2.0 % (20.0-50.0); MONOCYTES % MANUAL 4.0 % (2.0-8.0); NEUTROPHILS % MANUAL 90.0 % (45.0-75.0); PLATELET ESTIMATE NORMAL
== END 2025-07-02 19:38 | disposition home or self-care (01) ==
LOC: ER 15:26
DX: K57.32 Diverticulitis of large intestine without perforation or abscess without bleeding (principal); R11.16 Cannabis hyperemesis syndrome; D72.829 Elevated white blood cell count, unspecified; Z79.899 Other long term (current) drug therapy
CPT/HCPCS: 80076; 80048; 83690; 85025; 36415; 74177; 96361; 96372; 96374; 99285; Q9967; J1630; J2270; J7030; Z7610